=== PATIENT | male | born 1955 | race Caucasian/White ===

== ENCOUNTER 2017-05-02 16:15 | Observation (INO) | payer OTHER ==
[2017-05-02] MEDS ORDERED: NS 1,000 ML IV ONE (17:08)
[2017-05-02 17:26] LABS: % IMMATURE GRANULYOCYTES 0.2 % (0.0-1.1); ABSOLUTE IMMATURE GRANULOCYTES 0.01 10^3/uL (0.00-0.10); ADD DIFF? NO; ADD MORPH? NO; ADD SCAN? NO; ATYPICAL LYMPHOCYTE FLAG 10 (0-99); FRAGMENT RBC FLAG 0 (0-99); HEMATOCRIT 43.4 % (40.0-51.0); HEMOGLOBIN 15.8 g/dL (13.7-17.5); LEFT SHIFT FLG 0 (0-99); LIPEMIA HEMOLYSIS FLAG 90 (0-99); MEAN CELL HEMOGLOBIN 33.2 pg (27.9-34.1); MEAN CELL HEMOGLOBIN CONCENTR. 36.4 g/dL (32.4-36.7); MEAN CELL VOLUME 91.2 fL (81.5-99.8); MEAN PLATELET VOLUME 9.4 fL (8.7-11.7); PLATELET CLUMPS FLAG 0 (0-99); PLATELET COUNT 122 10^3/uL (150-400); RED BLOOD CELL COUNT 4.76 10^6/uL (4.40-6.38); RED CELL DISTRIBUTION WIDTH 11.7 % (11.5-15.2)
[2017-05-02 17:42] LABS: ALANINE AMINOTRANSFERASE 36 IU/L (21-72); ALBUMIN 4.4 g/dL (3.5-5.0); ALKALINE PHOSPHATASE 71 IU/L (38-126); ANION GAP 13 mEq/L (8-16); ASPARTATE AMINOTRANSFERASE 36 IU/L (17-59); BILIRUBIN,TOTAL 4.6 mg/dL (0.1-1.4); BILIRUBIN-CONJUGATED 0.4 mg/dL (0.0-0.5); BILIRUBIN-UNCONJUGATED 4.2 mg/dL (0.0-1.1); CALCIUM 9.4 mg/dL (8.5-10.4); CARBON DIOXIDE 26 mEq/l (22-31); CHLORIDE 102 mEq/L (97-110); CREATININE 0.8 mg/dL (0.7-1.3); GLOMERULAR FILTRATION RATE > 60; GLUCOSE 87 mg/dL (70-100); POTASSIUM 4.3 mEq/L (3.5-5.2); SODIUM 141 mEq/L (134-144); TOTAL PROTEIN 7.3 g/dL (6.3-8.2)
--- NOTE | 2017-05-02 18:02 | EDPHY ---
H & P Stated Complaint: poss reaction to sulfa; eyes red and mouth sores since saturday Time Seen by Provider: 05/02/17 17:08 HPI/ROS: CHIEF COMPLAINT: Conjunctival and mucous membrane irritation HISTORY OF PRESENT ILLNESS: The patient presents to the ED with progressive conjunctival mucous membrane irritation which began on Saturday and Saturday. The patient's symptoms began after taking Bactrim which he uses sporadically for rosacea. The patient realized he had similar milder symptoms approximately a year ago after using Bactrim. The patient did not developed any rash on his skin. The patient is only on Flomax which he has been on for a year and half. The patient has been having some difficulty swallowing. The patient denies any cough or congestion. The patient denies additional acute complaints. REVIEW OF SYSTEMS: A comprehensive 10 point review of systems is otherwise negative aside from elements mentioned in the history of present illness. Source: Patient Exam Limitations: No limitations - Personal History Current Tetanus/Diphtheria Vaccine: Unsure Current Tetanus Diphtheria and Acellular Pertussis (TDAP): Unsure - Medical/Surgical History Hx Asthma: No Hx Chronic Respiratory Disease: No Hx Diabetes: No Hx Cardiac Disease: No Hx Renal Disease: No Hx Cirrhosis: No Hx Alcoholism: No Hx HIV/AIDS: No Hx Splenectomy or Spleen Trauma: No Other PMH: leukemia - Social History Smoking Status: Never smoked - Physical Exam Exam: General Appearance: Alert, no distress Eyes: Bilateral conjunctival irritation and edema ENT, Mouth: Dry mucous membranes, diffuse intraoral erythema noted Respiratory: There are no retractions, lungs are clear to auscultation Cardiovascular: Regular rate and rhythm Gastrointestinal: Abdomen is soft and nontender, no masses, bowel sounds normal Neurological: A&O, normal motor function, normal sensory exam, normal cranial nerves Skin: Warm and dry, no rashes Musculoskeletal: Neck is supple nontender Extremities: symmetrical, full range of motion Constitutional: Initial Vital Signs Temperature (C) 37.0 C 05/02/17 16:20 Heart Rate 69 05/02/17 16:20 Respiratory Rate 16 05/02/17 16:20 Blood Pressure 142/73 H 05/02/17 16:20 O2 Sat (%) 98 05/02/17 16:20 O2 Delivery Mode Room Air Allergies/Adverse Reactions: Sulfa (Sulfonamide Antibiotics) Allergy (Verified 05/02/17 16:19) Home Medications: Medication Instructions Recorded Flomax 05/02/17 Medical Decision Making ED Course/Re-evaluation: The patient had an IV established. She received a L of normal saline. The patient presents to the ED with a likely Mallory-Dominik reaction from using Bactrim. Given the extensive ocular and intraoral involvement I do feel that he should be admitted to the hospital. This was requested by his primary care provider Dr. Juarez. The patient has no evidence of any desquamation. He is hemodynamically stable. He was rehydrated in the emergency department. I discussed the case with Dr. Galarza from the hospitalist service who will admit the patient. Differential Diagnosis: Differential diagnosis considered includes Mallory-Dominik syndrome, viral syndrome, candidal infection, metabolic abnormality - Data Points Laboratory Results: Laboratory Results 05/02/17 17:20 05/02/17 17:20 05/02/17 05/02/17 17:20 17:20 WBC 6.48 10^3/uL 10^3/uL (3.80-9.50) RBC 4.76 10^6/uL 10^6/uL (4.40-6.38) Hgb 15.8 g/dL g/dL (13.7-17.5) Hct 43.4 % % (40.0-51.0) MCV 91.2 fL fL (81.5-99.8) MCH 33.2 pg pg (27.9-34.1) MCHC 36.4 g/dL g/dL (32.4-36.7) RDW 11.7 % % (11.5-15.2) Plt Count 122 10^3/uL L 10^3/uL (150-400) MPV 9.4 fL fL (8.7-11.7) Neut % (Auto) 71.8 % % (39.3-74.2) Lymph % (Auto) 16.5 % % (15.0-45.0) Runnels % (Auto) 9.1 % % (4.5-13.0) Eos % (Auto) 2.2 % % (0.6-7.6) Baso % (Auto) 0.2 % L % (0.3-1.7) Nucleat RBC Rel Count 0.0 % % (0.0-0.2) Absolute Neuts (auto) 4.66 10^3/uL 10^3/uL (1.70-6.50) Absolute Lymphs (auto) 1.07 10^3/uL 10^3/uL (1.00-3.00) Absolute Monos (auto) 0.59 10^3/uL 10^3/uL (0.30-0.80) Absolute Eos (auto) 0.14 10^3/uL 10^3/uL (0.03-0.40) Absolute Basos (auto) 0.01 10^3/uL L 10^3/uL (0.02-0.10) Absolute Nucleated RBC 0.00 10^3/uL 10^3/uL (0-0.01) Immature Gran % 0.2 % % (0.0-1.1) Immature Gran # 0.01 10^3/uL 10^3/uL (0.00-0.10) Sodium 141 mEq/L mEq/L (134-144) Potassium 4.3 mEq/L mEq/L (3.5-5.2) Chloride 102 mEq/L mEq/L (97-110) Carbon Dioxide 26 mEq/l mEq/l (22-31) Anion Gap 13 mEq/L mEq/L (8-16) BUN 16 mg/dL mg/dL (7-23) Creatinine 0.8 mg/dL mg/dL (0.7-1.3) Estimated GFR > 60 Glucose 87 mg/dL mg/dL (70-100) Calcium 9.4 mg/dL mg/dL (8.5-10.4) Total Bilirubin 4.6 mg/dL H mg/dL (0.1-1.4) Conjugated Bilirubin 0.4 mg/dL mg/dL (0.0-0.5) Unconjugated Bilirubin 4.2 mg/dL H mg/dL (0.0-1.1) AST 36 IU/L IU/L (17-59) ALT 36 IU/L IU/L (21-72) Alkaline Phosphatase 71 IU/L IU/L (38-126) Total Protein 7.3 g/dL g/dL (6.3-8.2) Albumin 4.4 g/dL g/dL (3.5-5.0) Lipase 35 IU/L IU/L (23-300) Medications Given: Discontinued Medications Sodium Chloride (Ns) 1,000 mls @ 0 mls/hr IV EDNOW ONE; Wide Open PRN Reason: Protocol Stop: 05/02/17 17:09 Last Admin: 05/02/17 17:26 Dose: 1,000 mls Morphine Sulfate (Morphine) 4 mg IVP EDNOW ONE Stop: 05/02/17 17:23 Last Admin: 05/02/17 17:27 Dose: 4 mg Departure - Departure Disposition: [facility] Inpatient Acute Clinical Impression: Mallory-Dominik syndrome Condition: Good Referrals: Celine Moore PA [Primary Care Provider] - As per Instructions
[2017-05-02] MEDS ORDERED: ONDANSETRON 4 MG/2 ML VIAL IVP PRN (22:18)
[2017-05-02] MEDS ORDERED: ACETAMINOPHEN 325 MG TAB PO PRN (22:18)
[2017-05-02] MEDS ORDERED: LORazepam 0.5 MG TAB PO PRN (22:28)
[2017-05-02] MEDS ORDERED: diphenhydrAMINE 25 MG CAP PO PRN (22:28)
[2017-05-02] MEDS ORDERED: NS 1,000 ML IV SCH (22:30)
[2017-05-03] MEDS ORDERED: ZOLPIDEM TARTRATE 5 MG TAB PO PRN (00:11)
[2017-05-03] MEDS ORDERED: HYDROmorphONE/DILAUDID 1 MG/ML INJ IVP PRN (00:12)
[2017-05-03] MEDS: MBX SOLN 30 ML BOTTLE PO PRN ×4 (00:31→17:04)
[2017-05-03] MEDS: HYDROCOD/APAP 7.5/325 IN 15ML UDCUP PO PRN ×4 (00:34→17:03)
[2017-05-03 05:08] LABS: % IMMATURE GRANULYOCYTES 0.4 % (0.0-1.1); ABSOLUTE IMMATURE GRANULOCYTES 0.02 10^3/uL (0.00-0.10); ADD DIFF? NO; ADD MORPH? NO; ADD SCAN? NO; ATYPICAL LYMPHOCYTE FLAG 10 (0-99); FRAGMENT RBC FLAG 0 (0-99); HEMATOCRIT 39.6 % (40.0-51.0); HEMOGLOBIN 14.2 g/dL (13.7-17.5); LEFT SHIFT FLG 0 (0-99); LIPEMIA HEMOLYSIS FLAG 90 (0-99); MEAN CELL HEMOGLOBIN 32.8 pg (27.9-34.1); MEAN CELL HEMOGLOBIN CONCENTR. 35.9 g/dL (32.4-36.7); MEAN CELL VOLUME 91.5 fL (81.5-99.8); MEAN PLATELET VOLUME 9.9 fL (8.7-11.7); PLATELET CLUMPS FLAG 0 (0-99); PLATELET COUNT 119 10^3/uL (150-400); RED BLOOD CELL COUNT 4.33 10^6/uL (4.40-6.38); RED CELL DISTRIBUTION WIDTH 11.7 % (11.5-15.2)
[2017-05-03 05:27] LABS: ALANINE AMINOTRANSFERASE 30 IU/L (21-72); ALBUMIN 3.5 g/dL (3.5-5.0); ALKALINE PHOSPHATASE 54 IU/L (38-126); ANION GAP 10 mEq/L (8-16); ASPARTATE AMINOTRANSFERASE 29 IU/L (17-59); BILIRUBIN,TOTAL 3.2 mg/dL (0.1-1.4); CALCIUM 8.6 mg/dL (8.5-10.4); CARBON DIOXIDE 25 mEq/l (22-31); CHLORIDE 105 mEq/L (97-110); CREATININE 0.7 mg/dL (0.7-1.3); GLOMERULAR FILTRATION RATE > 60; GLUCOSE 79 mg/dL (70-100); POTASSIUM 4.3 mEq/L (3.5-5.2); SODIUM 140 mEq/L (134-144); TOTAL PROTEIN 5.9 g/dL (6.3-8.2)
[2017-05-03 05:34] LABS: BILIRUBIN-CONJUGATED 0.1 mg/dL (0.0-0.5); BILIRUBIN-UNCONJUGATED 3.1 mg/dL (0.0-1.1)
--- NOTE | 2017-05-03 08:19 | PDGENHP ---
History and Physical - Chief Complaint oral ulcers, conjunctivitis - History of Present Illness Source - patient provides history and appears reliable. HPI - Pleasant 61 yo M with pmhx significant for hx leukemia, rosacea, BPH and successfully tx HCV who presents to ED today with complaint of significant mouth pain and odynopagia. Patient reports + fevers/chills but no sweats. Patient denies any skin changes/rashes/blistering. Patient took 1 dose of bactrim on saturday for management of his rosacea. That same day patient reports developing oral ulcerations and significant pain. Patient also notes bilateral conjunctivitis. Patient denies any known sick contacts. He denies any cough/ rhinorrhea but has had some nasal congestion. History Information - Allergies/Home Medication List Allergies/Adverse Reactions: Sulfa (Sulfonamide Antibiotics) Allergy (Verified 05/02/17 16:19) Home Medications: Neomycin/Polymyxin B/Dexametha [Ptzgeo-Whswa-Rruqqtwu Eye Drop] 1 drop EACHEYE QID 05/02/17 [Last Taken 05/02/17] Tamsulosin HCl [Flomax 0.4 MG (*)] 0.4 mg PO DAILY 05/02/17 [Last Taken 05/02/17 ] I have personally reviewed and updated: family history, medical history, social history, surgical history - Past Medical History Additional medical history: BPH. Chronic back pain. hx leukemia. rosacea. hx HCV s/p treatment with Harvoni. chronic hyperbilirubinemia. - Surgical History Additional surgical history: multiple orthopedic surgerys (L femur remair, right humerus, toe). hernia repair - Family History Additional family history: seasonal allergies. father with afib. children healthy - Social History Smoking Status: Never smoked Alcohol Use: Other (2 glasses wine/daily) Drug Use: Marijuana (CBD oil.) Review of Systems Review of Systems: ROS: 10pt was reviewed & negative except for what was stated in HPI & below Constitutional: Reports: chills, fever EENMT: Reports: eye pain, mouth pain, nose congestion, sore throat, other ( oropharyngeal ulcerations). Denies: blurred vision, mouth swelling, throat swelling Cardiac: Denies: chest pain, edema, palpitations Respiratory: Denies: cough, shortness of breath Gastrointestinal: Denies: vomitting, diarrhea, nausea Genitourinary: Denies: dysuria, hematuria Muscolosketal: Reports: other (osteoarthritis multiple joints. increase in joint pain. increased wrist pain) Skin: Reports: no symptoms. Denies: lesions, rash Neurological: Reports: headache. Denies: numbness, tingling, tremors Hematologic/Lymphatic: Denies: easy bleeding, easy bruising Physical Exam Physical Exam: Selected Entries 05/02/17 05/02/17 16:20 22:57 Blood Pressure Automatic Method Heart Rate 69 45 L Respiratory 16 14 Rate O2 Sat (%) 98 94 Temperature (C) 37.0 C 36.8 C Blood Pressure 142/73 H 113/67 Mean Arterial 96 82 Pressure (MAP) Activity During At Rest Vital Signs O2 Delivery Room Air Room Air Mode Blood Pressure Left Source Upper Arm Temperature Oral Oral Source Heart Rate Heart Rate/ Source Monitor Temp Pulse Resp BP Pulse Ox 36.8 C 48 L 14 120/62 98 05/03/17 04:00 05/03/17 04:00 05/03/17 04:00 05/03/17 04:00 05/03/17 04:00 Constitutional: no apparent distress, uncomfortable, No chronically ill appearing Eyes: PERRL, EOMI, scleral injection (bilateral. no drainage), No icteric sclera Ears, Nose, Mouth, Throat: oral ulcer (patient with multiple streak appearing/ vesciular ulceration with white bases on buccal and oropharyngeal membranes. no open lesions on exterior lips. ), dry mucous membranes, No oral thrush Cardiovascular: regular rate and rhythym, no murmur, rub, or gallop, No systolic murmur, No edema Peripheral Pulses: 2+: dorsalis-pedis (R), dorsalis-pedis (L) Respiratory: no respiratory distress, no rales or rhonchi, clear to auscultation Gastrointestinal: normoactive bowel sounds, soft, non-tender abdomen, no palpable masses Genitourinary: no bladder tenderness, No acharya in urethra Skin: warm, normal color, no rashes or abrasions Musculoskeletal: full muscle strength, No generalized weakness Neurologic: AAOx3, sensation intact bilaterally, CN II-XII Intact, No weakness, No facial droop Psychiatric: interacting appropriately, not anxious, not encephalopathic, thought process linear, No anxious, No depressed, No poor insight, No poor judgement, No poor memory Lab Data & Imaging Review 05/03/17 04:23 05/03/17 04:23 Laboratory Tests 05/02/17 05/02/17 17:20 17:20 WBC 6.48 RBC 4.76 Hgb 15.8 Hct 43.4 MCV 91.2 MCH 33.2 MCHC 36.4 RDW 11.7 Plt Count 122 L Immature Gran % 0.2 Immature Gran # 0.01 Sodium 141 Potassium 4.3 Chloride 102 Carbon Dioxide 26 Anion Gap 13 BUN 16 Creatinine 0.8 Estimated GFR > 60 Glucose 87 Calcium 9.4 Total Bilirubin 4.6 H Conjugated Bilirubin 0.4 Unconjugated Bilirubin 4.2 H AST 36 ALT 36 Alkaline Phosphatase 71 Total Protein 7.3 Albumin 4.4 Lipase 35 WBC 5.61 10^3/uL (3.80-9.50) 05/03/17 04:23 RBC 4.33 10^6/uL (4.40-6.38) L 05/03/17 04:23 Hgb 14.2 g/dL (13.7-17.5) 05/03/17 04:23 Hct 39.6 % (40.0-51.0) L 05/03/17 04:23 MCV 91.5 fL (81.5-99.8) 05/03/17 04:23 MCH 32.8 pg (27.9-34.1) 05/03/17 04:23 MCHC 35.9 g/dL (32.4-36.7) 05/03/17 04:23 RDW 11.7 % (11.5-15.2) 05/03/17 04:23 Plt Count 119 10^3/uL (150-400) L 05/03/17 04:23 MPV 9.9 fL (8.7-11.7) 05/03/17 04:23 Neut % (Auto) 56.8 % (39.3-74.2) 05/03/17 04:23 Lymph % (Auto) 27.1 % (15.0-45.0) 05/03/17 04:23 [place] % (Auto) 10.0 % (4.5-13.0) 05/03/17 04:23 Eos % (Auto) 5.2 % (0.6-7.6) 05/03/17 04:23 Baso % (Auto) 0.5 % (0.3-1.7) 05/03/17 04:23 Nucleat RBC Rel Count 0.0 % (0.0-0.2) 05/03/17 04:23 Absolute Neuts (auto) 3.19 10^3/uL (1.70-6.50) 05/03/17 04:23 Absolute Lymphs (auto) 1.52 10^3/uL (1.00-3.00) 05/03/17 04:23 Absolute Monos (auto) 0.56 10^3/uL (0.30-0.80) 05/03/17 04:23 Absolute Eos (auto) 0.29 10^3/uL (0.03-0.40) 05/03/17 04:23 Absolute Basos (auto) 0.03 10^3/uL (0.02-0.10) 05/03/17 04:23 Absolute Nucleated RBC 0.00 10^3/uL (0-0.01) 05/03/17 04:23 Immature Gran % 0.4 % (0.0-1.1) 05/03/17 04:23 Immature Gran # 0.02 10^3/uL (0.00-0.10) 05/03/17 04:23 Sodium 140 mEq/L (134-144) 05/03/17 04:23 Potassium 4.3 mEq/L (3.5-5.2) 05/03/17 04:23 Chloride 105 mEq/L (97-110) 05/03/17 04:23 Carbon Dioxide 25 mEq/l (22-31) 05/03/17 04:23 Anion Gap 10 mEq/L (8-16) 05/03/17 04:23 BUN 12 mg/dL (7-23) 05/03/17 04:23 Creatinine 0.7 mg/dL (0.7-1.3) 05/03/17 04:23 Estimated GFR > 60 05/03/17 04:23 Glucose 79 mg/dL (70-100) 05/03/17 04:23 Calcium 8.6 mg/dL (8.5-10.4) 05/03/17 04:23 Magnesium 2.0 mg/dL (1.6-2.3) 05/03/17 04:23 Total Bilirubin 3.2 mg/dL (0.1-1.4) H 05/03/17 04:23 Conjugated Bilirubin 0.1 mg/dL (0.0-0.5) 05/03/17 04:23 Unconjugated Bilirubin 3.1 mg/dL (0.0-1.1) H 05/03/17 04:23 AST 29 IU/L (17-59) 05/03/17 04:23 ALT 30 IU/L (21-72) 05/03/17 04:23 Alkaline Phosphatase 54 IU/L (38-126) 05/03/17 04:23 Total Protein 5.9 g/dL (6.3-8.2) L 05/03/17 04:23 Albumin 3.5 g/dL (3.5-5.0) 05/03/17 04:23 Lipase 35 IU/L (23-300) 05/02/17 17:20 Assessment & Plan Assessment: 1. stomatitis/mucositis - patient with coincidental development of sx with bactrim for second time in the last 6 months. will need to monitor closely for sx of SJS. will obtain swab r/o HSV but will not likely return until after pt discharge. No indication for any steroids at this time. Supportive care recommended for SJS. patient advised to avoid bactrim/sulfa based medications in the future. 2. conjunctivitis - supportive care. denies pain. eye gtts prn. 3. dehydration - IV fluid hydration. pt finding it difficult to orally hydrate with current ulcerations. 4. hyperbilirubinemia - patient without abdominal pain. o/p labs showing similar. will need to clarify further with patient in AM . 5. thrombocytopenia - hx HCV s/p tx. stable. no evidence of bleeding. continue to monitor. 6. hx leukemia FEN - IVF. encourage po hydration if pain controlled with magic mouthwash but has been difficult. electrolyte replacement prn. diet as tolerated. PPX - SCDs. lovenox if patient should stay additional day. COR- FULL. Mary Ellen Morgan [facility] Dispo - admit to observation on medical floor at this time.
[2017-05-03] MEDS ORDERED: TEARS/DEXTRAN 70/HYPROMELLOSE 15 ML OPHT.BTL EACHEYE PRN (08:45)
[2017-05-03] MEDS: TAMSULOSIN HCL 0.4 MG CAP PO SCH (11:15)
[2017-05-03] MEDS: predniSONE 20 MG TAB PO SCH (11:15)
[2017-05-03] MEDS: NEO/POLYMYX B SULF/DEXAMETH 5 ML OPHT.BTL EACHEYE SCH ×3 (11:16→21:54)
[2017-05-03] MEDS ORDERED: HYDROCORTISONE 100 MG/60 ML ENEMA BOTTLE PR ONE (11:35)
--- NOTE | 2017-05-03 14:34 | ASMTCMCOM ---
CM Note CM Note Notes: Pt admitted with dehydration, mouth pain, conjunctivitis. 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 Hx leukemia. Per RN, pt not likely to have CM needs at d/c but will continue to follow for any change in needs. Date Signed: 05/03/2017 02:33 PM Electronically Signed By:CUONG Mcghee
--- NOTE | 2017-05-03 14:39 | HOSPPROG ---
Hospitalist Progress Note Assessment/Plan: 61 yo M with hx of leukemia now in remission as well as bph, HCV s/p treatment presenting with severe mucositis as well as conjuctivitis and rectal pain following bactrim use c/w Mallory Dominik syndrome # David's Dominik syndrome: patient with what seems most c/w SJS following bactrim use, he has had similar issues once before following bactrim but at that time did not seek medical care. He has involvement of his mouth, eyes and rectum but nothing involving the skin. Will continue to monitor overnight tonight, started prednisone for a short course # mucositis: severe pain in the mouth, has been able to eat but pain is quite severe--will continue hydrocodone, morphine, magic mouthwash. HSV serologies sent in case that is also contributing. # conjunctivitis: was started on polymyxin drops, seen by optho and they felt that this is likely SJS as well, will continue drops/steroids as above # HCV: s/p treatment, continuously elevated LFTs in the past, currently still has mildly elevated bili, similar to prior levels # thrombocytopenia: chronic, related to hx of leukemia per his report # dispo: IP status, will need > 48 hours stay for eval/mgmt of above Patient new to my care. Further hx obtained from patients present at bedside. Discussed care plan with patients PCP nurse and further hx obtained from her. Subjective: no significant overnight events, patient continues to have severe mouth pain, has been able to eat Objective: Vital Signs Temp Pulse Resp BP Pulse Ox 36.7 C 49 L 14 124/71 H 92 05/03/17 11:42 05/03/17 11:42 05/03/17 11:42 05/03/17 11:42 05/03/17 11:42 Laboratory Results 05/03/17 04:23 05/03/17 04:23 05/02/17 05/03/17 05/04/17 05:59 05:59 05:59 Intake Total 450 Output Total 600 Balance 450 -600 awake alert nad anicteric, bilateral scleral injection without clear purulence diffuse ecchymosis and areas of sloughing/scalded appearing skin on palate, beneath tongue rrr no mrg cta b soft nt nd no cce warm dry well perfused oriented appropriate - Time Spent With Patient Time Spent with Patient: greater than 35 minutes Time Spent with Patient: Greater than 35 minutes spent on this patients care, greater than 50% of time spent counseling, educating, and coordinating care regarding the above mentioned plan. ICD10 Worksheet Patient Problems: Problems Problem Status Onset Mallory-Dominik syndrome Acute
--- NOTE | 2017-05-03 15:03 | PDMN ---
Medical Necessity Medical necessity: Patient meets INPT criteria per physician note and [facility] [place] [facility] (severe mucositis, conjunctivitis, rectal pain c/w Mallory- Dominik syndrome s/p Bactrim use; hx of leukemia now in remission/chronic thrombocytopenia; LOS will be > 2 midnights for ongoing IV hydration, IV morphine and dilaudid for pain control, initiation of steroids.
[2017-05-03] MEDS: HYDROCODONE/APAP 5/325 TAB PO PRN (21:52)
[2017-05-04] MEDS: NEO/POLYMYX B SULF/DEXAMETH 5 ML OPHT.BTL EACHEYE SCH ×2 (06:36→12:04)
[2017-05-04 07:42] VITALS: BP 125/72; PULSE 44; RESP 12; TEMP 97.7; O2SAT 93
[2017-05-04] MEDS: HYDROCODONE/APAP 5/325 TAB PO PRN ×2 (09:24→10:45)
[2017-05-04] MEDS: predniSONE 20 MG TAB PO SCH (09:26)
[2017-05-04] MEDS: TAMSULOSIN HCL 0.4 MG CAP PO SCH (09:26)
--- NOTE | 2017-05-04 10:33 | PDDCSUM ---
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 He has involvement of his mouth, eyes and rectum but nothing involving the skin. Improved overnight with prednisone. Plan to dc on short course of pred, bactrim now noted as allergy. # mucositis: severe pain in the mouth, has been able to eat but pain is quite severe--will continue hydrocodone, magic mouthwash. # conjunctivitis: was started on polymyxin drops, seen by optho and they felt that this is likely SJS as well, will continue drops/steroids as above. Has f/u with optho early this week. # HCV: s/p treatment, continuously elevated LFTs in the past, currently still has mildly elevated bili, similar to prior levels # thrombocytopenia: chronic, related to hx of leukemia per his report Dc home f/u with PCPsania > 35 min spent in dc more than half in coordination of care and counseling patient regarding f/u care plan
[2017-05-04] MEDS ORDERED: MBX SOLN 30 ML BOTTLE PO PRN (11:05)
--- NOTE | 2017-05-04 11:24 | ASMTCMCOM ---
CM Note CM Note Notes: Pt. to d/c today. CM called bedside RN. Pt. is indeed indpendent per RN. Date Signed: 05/04/2017 11:24 AM Electronically Signed By:Jany Sims LCSW
[2017-05-04] MEDS: MBX SOLN 30 ML BOTTLE PO PRN (11:59)
[2017-05-05 16:16] LABS: SPECIMEN SOURCE THROAT
== END 2017-05-04 12:17 | disposition home or self-care (01) ==
LOC: F3E 18:43 → OBSVTOIN 05-03 13:50 → INTOOBSV 05-03 13:50
PROVIDERS: ADMIT Internal Medicine; ATTEND Internal Medicine
DX: L51.1 Stevens-Johnson syndrome (principal); K12.30 Oral mucositis (ulcerative), unspecified; H10.9 Unspecified conjunctivitis; B18.2 Chronic viral hepatitis C; D69.6 Thrombocytopenia, unspecified; Z85.6 Personal history of leukemia
CPT/HCPCS: 87529-90; G0378; J1170; J2405

== ENCOUNTER → 2018-04-04 | Outpatient (CLI) | payer OTHER | LOC: BMCIMAGING 07:18 | PROVIDERS: ATTEND Physician Assistant | DX: K40.90 Unilateral inguinal hernia, without obstruction or gangrene, not specified as recurrent (principal) ==